=== PATIENT | female | born 1995 | race Hispanic/Latino ===

== ENCOUNTER 2017-05-12 12:03 | Inpatient (IN) | payer OTHER ==
[2017-05-12] MEDS ORDERED: Sodium Chloride 0.9% 1,000 ML IV STA (12:18)
[2017-05-12 13:12] LABS: BASO % 0.5 % (0.0-2.0); EOS % 0.3 % (0.0-4.0); HEMOGLOBIN 12.8 g/dL (12.0-16.0); LYMPH # 1.1 K/uL (1.0-4.3); LYMPH % 13.5 % (20.0-40.0); MEAN CELL VOLUME 85.2 fl (81.0-99.0); MEAN CORPUSCULAR HEMOGLOBIN 29.3 pg (27.0-31.0); MEAN CORPUSCULAR HGB CONC 34.4 g/dL (33.0-37.0); MEAN PLATELET VOLUME 7.7 fl (7.2-11.7); MONO # 0.5 K/uL (0.0-0.8); MONO % 6.5 % (0.0-10.0); NEUT # 6.7 K/uL (1.8-7.0); NEUT % 79.2 % (50.0-75.0); NRBC % 0.7 % (0.0-0.0); RBC 4.37 Mil/uL (3.80-5.20); RED CELL DISTRIBUTION WIDTH 13.1 % (11.5-14.5); WHITE BLOOD COUNT 8.4 K/uL (4.8-10.8)
[2017-05-12 13:18] LABS: SQUAMOUS EPITHIAL 4 /hpf (0-5); URINE BACTERIA RARE (<OCC); URINE BILIRUBIN NEGATIVE (NEGATIVE); URINE BLOOD LARGE (NEGATIVE); URINE CLARITY SLIGHTY-CLOUDY (Clear); URINE COLOR YELLOW (YELLOW); URINE GLUCOSE (UA) NEG (Normal); URINE LEUKOCYTE ESTERASE SMALL Leu/uL (Negative); URINE NITRATE NEGATIVE (NEGATIVE); URINE PROTEIN NEGATIVE (NEGATIVE); URINE UROBILINOGEN 0.2-1.0 mg/dL (0.2-1.0)
[2017-05-12 13:24] LABS: ALB/GLOB RATIO 1.1 (1.0-2.1); ALBUMIN 4.3 g/dL (3.5-5.0); ALT/SGPT 23 U/L (9-52); AST/SGOT 20 U/L (14-36); BLOOD UREA NITROGEN 10 mg/dl (7-17); CALCIUM 9.6 mg/dL (8.4-10.2); GFR AFRICAN-AMERICAN > 60; GFR NON-AFRICAN AMERICAN > 60
[2017-05-12 13:25] LABS: INR 1.2 (0.9-1.2); PROTHROMBIN TIME 13.1 Seconds (9.8-13.1)
[2017-05-12 13:30] LABS: BARBITURATES, UR NEGATIVE (NEGATIVE); BENZODIAZEPINES, UR NEGATIVE (NEGATIVE); OPIATES, UR NEGATIVE (NEGATIVE); PHENCYCLIDINE, UR NEGATIVE (NEGATIVE)
[2017-05-12 13:31] LABS: SALICYLATE < 1.0 mg/dl
--- NOTE | 2017-05-12 13:41 | ED PDOC ---
HPI: Psych/Substance Abuse Time Seen by Provider: 05/12/17 12:17 Chief Complaint (Nursing): Psychiatric Evaluation Chief Complaint (Provider): SI; depression - Took tylenol at 10pm History Per: Patient, Other (Solar Sales Advisor ) History/Exam Limitations: no limitations Onset/Duration Of Symptoms: Mins Additional Complaint(s): 21 yo female presents with assistant strength coach from [facility] for evaluation of SI and overdose on tylenol. Pt reports taking 8 tabs of 500mg Tylenol EMBEDDED PROCESSOR with vodka. Pt states she has felt depressed on/off for the last few years and has been seeing a psychologist for counleing but has not seen a psychiatrist for further evaluation and medications. Pt denies N/V. Pt denies abdominal pain. Past Medical History Reviewed: Historical Data, Nursing Documentation, Vital Signs Vital Signs: Last Vital Signs Temp 99 F 05/12/17 12:08 Pulse 90 05/12/17 12:08 Resp 16 05/12/17 12:08 BP 120/76 05/12/17 12:08 Pulse Ox 98 05/12/17 12:08 - Medical History PMH: No Chronic Diseases Other PMH: Depression - Not offically diagnosed by psychiatrist - Surgical History Surgical History: No Surg Hx - Family History Family History: States: No Known Family Hx - Living Arrangements Living Arrangements: Other - Social History Current smoker - smoking cessation education provided: No Alcohol: Occasional Drugs: Denies - Allergies Allergies/Adverse Reactions: Allergies Allergy/AdvReac Type Severity Reaction Status Date / Time No Known Allergies Allergy Verified 05/12/17 12:17 Review of Systems ROS Statement: Except As Marked, All Systems Reviewed And Found Negative Constitutional: Negative for: Fever, Chills Gastrointestinal: Negative for: Vomiting, Abdominal Pain Neurological: Negative for: Weakness, Numbness Psych: Positive for: Depression, Suicidal ideation Physical Exam - Reviewed Nursing Documentation Reviewed: Yes Vital Signs Reviewed: Yes - Physical Exam Appears: Positive for: Well, Non-toxic, No Acute Distress Head Exam: Positive for: ATRAUMATIC, NORMAL INSPECTION, NORMOCEPHALIC Skin: Positive for: Normal Color, Warm, DRY Eye Exam: Positive for: Normal appearance ENT: Positive for: Normal ENT Inspection Neck: Positive for: Normal, Painless ROM Cardiovascular/Chest: Positive for: Regular Rate, Rhythm Respiratory: Positive for: CNT, Normal Breath Sounds Gastrointestinal/Abdominal: Positive for: Normal Exam, Bowel Sounds, Soft. Negative for: Tenderness Back: Positive for: Normal Inspection Extremity: Positive for: Normal ROM Neurologic/Psych: Positive for: Alert, ironworker apprentice II-XII, Oriented, Gait - Laboratory Results Result Diagrams: 05/12/17 13:00 05/12/17 13:00 - ECG O2 Sat by Pulse Oximetry: 98 Disposition - Clinical Impression Clinical Impression: Tylenol overdose, Suicidal ideations - Disposition Disposition Time: 13:50 Condition: STABLE
[2017-05-12] MEDS ORDERED: DEXTROSE 5% IVPB ONE ×3 (14:16→20:00)
[2017-05-12] MEDS ORDERED: WATER IVPB ONE ×3 (14:16→20:00)
[2017-05-12] MEDS ORDERED: ACETYLCYSTEINE IVPB ONE ×3 (14:16→20:00)
--- NOTE | 2017-05-12 15:18 | CP.PCM.HP ---
History of Present Illness - History of Present Illness History of Present Illness: This is 21 y/o female with PMH of depression presented to ED for evaluation and treatment of depression, suicide attempt and Acetamenophen overdose. Patient admits feeling depressed, sad and stressed since last few years which got severe /worse recently which prompted her to Overdose acetaminophen. She ingested 8 pills of acetaminophen 500mg (Total 8gm) this morning, realized her mistake soon after and notified school counselor. Patient is a calderon in college taking graduate classes; majoring in engineering, patient describes her school life vary stressful. Patient admits seeing psychologist for counseling at school. She lives w/ a sister and a roommate, she admits tension and occasional arguments with her roommate over house chores. She has a previous suicidal attempt 3 yrs ago; took 4-5 pain pills. She admits cutting her left wrist and arm with knife to relieve her stress. Patient denies any auditory/visual hallucinations, or homicidal ideation. Patient recently quite swimming team because she lost interest, admits decreased energy. Denies change in appetite, heat/cold intolerance, constipation. Denies being sexually or physically abused but admits to being bullied in high school. Denies n/v/d or any abdominal pain. Patient admits good relationship with a sister and parents. PMD: Concetta Rebolledo PMHx: Depression Surgical Hx: cleft lip repair. Congenital kidney problem repair Allg: NKDA Meds: Control Fhx: HTN, DM father side. Depression; grandfather. Living arrangements: a Sister and a roommate Social history:Does not smoke, Drinks occasionally. Smokes Marijuana; 2-3 joints /d Sexual hx: Sexually active, uses protection all the time, 1 partner in last 6 months Present on Admission - Present on Admission Any Indicators Present on Admission: No History of DVT/PE: No History of Uncontrolled Diabetes: No Urinary Catheter: No Decubitus Ulcer Present: No Review of Systems - Review of Systems Review of Systems: As per HPI - Constitutional Constitutional: Weight Loss - EENT Eyes: absent: Blurred Vision, Change in Vision Ears: absent: Dizziness Nose/Mouth/Throat: absent: Nasal Congestion, Dry Mouth, Dysphagia - Cardiovascular Cardiovascular: absent: Chest Pain, Leg Edema, Palpitations, Syncope - Respiratory Respiratory: absent: Cough, Hemoptysis, Dyspnea on Exertion - Gastrointestinal Gastrointestinal: absent: Abdominal Pain, Bloating, Constipation, Diarrhea, Dyspepsia, Dysphagia - Genitourinary Genitourinary: absent: Change in Urinary Stream, Flank Pain - Musculoskeletal Musculoskeletal: absent: Neck Pain, Numbness, Stiffness - Neurological Neurological: absent: Dizziness, Numbness, Focal Weakness, Headaches, Loss of Vision - Psychiatric Psychiatric: Depression, Suicidal Ideation. absent: Auditory Hallucinations, Change in Appetite, Confusion, Hallucinations, Homicidal Ideation, Memory Loss, Visual Hallucinations, Tactile Hallucinations Past Patient History - Past Social History Smoking Status: Never Smoked Alcohol: Occasional Drugs: Cannabis - CARDIAC Hx Cardiac Disorders: No - PULMONARY Hx Respiratory Disorders: No - NEUROLOGICAL Hx Neurological Disorder: No - HEENT Hx HEENT Problems: Yes Other/Comment: cleft palate - RENAL Hx Chronic Kidney Disease: Yes - ENDOCRINE/METABOLIC Hx Endocrine Disorders: No - HEMATOLOGICAL/ONCOLOGICAL Hx Blood Disorders: No - PSYCHIATRIC Hx Substance Use: No Meds Allergies/Adverse Reactions: Allergies Allergy/AdvReac Type Severity Reaction Status Date / Time No Known Allergies Allergy Verified 05/12/17 12:17 Physical Exam - Constitutional Appears: No Acute Distress Additional comments: Flat affect, cooperative, AAOx3 Left wrist and arm self inflicted superficial knife cuts noted, in varies stages of heeling No active bleeding or infected wound - Head Exam Head Exam: ATRAUMATIC, NORMAL INSPECTION, NORMOCEPHALIC - Eye Exam Eye Exam: EOMI, Normal appearance, PERRL Pupil Exam: NORMAL ACCOMODATION - ENT Exam ENT Exam: Mucous Membranes Moist - Neck Exam Neck exam: Positive for: Normal Inspection - Respiratory Exam Respiratory Exam: Clear to Auscultation Bilateral, NORMAL BREATHING PATTERN - Cardiovascular Exam Cardiovascular Exam: REGULAR RHYTHM - GI/Abdominal Exam GI & Abdominal Exam: Normal Bowel Sounds, Soft. absent: Organomegaly, Tenderness - Extremities Exam Additional comments: Left wrist and arm self inflicted superficial knife cuts noted, in varies stages of heeling No active bleeding or infected wound - Back Exam Back exam: NORMAL INSPECTION - Neurological Exam Neurological exam: Alert, CN II-XII Intact, Oriented x3 - Psychiatric Exam Psychiatric exam: Flat Affect, Suicidal Ideation - Skin Skin Exam: Dry, Normal Color Results - Vital Signs Recent Vital Signs: Last Vital Signs Temp 98.2 F 05/12/17 15:15 Pulse 72 05/12/17 14:52 Resp 16 05/12/17 14:52 BP 106/60 05/12/17 14:52 Pulse Ox 99 05/12/17 14:52 - Labs Result Diagrams: 05/12/17 13:00 05/12/17 13:00 Labs: Laboratory Results - last 24 hr 05/12/17 05/12/17 05/12/17 13:00 13:00 13:00 WBC 8.4 RBC 4.37 Hgb 12.8 Hct 37.3 MCV 85.2 MCH 29.3 MCHC 34.4 RDW 13.1 Plt Count 293 MPV 7.7 Neut % (Auto) 79.2 H Lymph % (Auto) 13.5 L [place] % (Auto) 6.5 Eos % (Auto) 0.3 Baso % (Auto) 0.5 Neut # (Auto) 6.7 Lymph # (Auto) 1.1 [place] # (Auto) 0.5 Eos # (Auto) 0.0 Baso # (Auto) 0.0 PT INR APTT Sodium 143 Potassium 3.8 Chloride 104 Carbon Dioxide 25 Anion Gap 18 BUN 10 Creatinine 0.6 L Est GFR ( Amer) > 60 Est GFR (Non-Af Amer) > 60 Random Glucose 90 Calcium 9.6 Total Bilirubin 0.7 AST 20 ALT 23 Alkaline Phosphatase 50 Total Protein 8.0 Albumin 4.3 Globulin 3.7 Albumin/Globulin Ratio 1.1 Urine Color Urine Clarity Urine pH Ur Specific [place] Urine Protein Urine Glucose (UA) Urine Ketones Urine Blood Urine Nitrate Urine Bilirubin Urine Urobilinogen Ur Leukocyte Esterase Urine RBC (Auto) Urine Microscopic WBC Ur Squamous Epith Cells Urine Bacteria Salicylates < 1.0 Urine Opiates Screen Urine Methadone Screen Acetaminophen 66.0 H Ur Barbiturates Screen Ur Phencyclidine Scrn Ur Amphetamines Screen U Benzodiazepines Scrn U Oth Cocaine Metabols U Cannabinoids Screen Alcohol, Quantitative < 10 05/12/17 05/12/17 05/12/17 13:00 13:00 13:00 WBC RBC Hgb Hct MCV MCH MCHC RDW Plt Count MPV Neut % (Auto) Lymph % (Auto) [place] % (Auto) Eos % (Auto) Baso % (Auto) Neut # (Auto) Lymph # (Auto) [place] # (Auto) Eos # (Auto) Baso # (Auto) PT 13.1 INR 1.2 APTT 29.0 Sodium Potassium Chloride Carbon Dioxide Anion Gap BUN Creatinine Est GFR ( Amer) Est GFR (Non-Af Amer) Random Glucose Calcium Total Bilirubin AST ALT Alkaline Phosphatase Total Protein Albumin Globulin Albumin/Globulin Ratio Urine Color Yellow Urine Clarity Slighty-cloudy Urine pH 6.0 Ur Specific [place] 1.010 Urine Protein Negative Urine Glucose (UA) Neg Urine Ketones Negative Urine Blood Large Urine Nitrate Negative Urine Bilirubin Negative Urine Urobilinogen 0.2-1.0 Ur Leukocyte Esterase Small Urine RBC (Auto) 118 H Urine Microscopic WBC 7 H Ur Squamous Epith Cells 4 Urine Bacteria Rare Salicylates Urine Opiates Screen Negative Urine Methadone Screen Negative Acetaminophen Ur Barbiturates Screen Negative Ur Phencyclidine Scrn Negative Ur Amphetamines Screen Negative U Benzodiazepines Scrn Negative U Oth Cocaine Metabols Negative U Cannabinoids Screen Positive H Alcohol, Quantitative Assessment & Plan - Assessment and Plan (Free Text) Assessment: 21 y/o female with PMH of Depression admitted for evaluation and treatment of recent Suicidal attempt and Acetaminophen overdose. Acetaminophen Overdose - Asymptomatic - Patient admits 8gm Tylenol intake - Acetaminophen level 66 on admission - CBC, CMP, Coag unremarkable - Patient is 1:1 observation - S/p 1L NS x1 - Continue N-Acetylcysteine - Pt received 241.5 mls @200mls/hr acetylcysteine 8300mg in dextrose - Pt received 513.85 mls @125mls/hr Acetylcysteine 2770 mg in Dextrose. - Start 21 hr N-Acetylcysteine IV protocol: 8250 mg loading dose over 60 minutes , followed by 2750 mg infused over 4 hrs, followed by 5500 mg infused over the next 16 hrs. Depression - 1:1 observation - Psych consulted, Dr. Arshad, follow up recommendations Suicidal Attempt - 8 gm Tylenol OVD - History of previous attempt - 1:1 Observation Substance Abuse - Smokes Marijuana; 2-3 joints/day - Urine drug screen positive for Marijuana
[2017-05-13 06:41] LABS: ALB/GLOB RATIO 1.1 (1.0-2.1); ALBUMIN 3.5 g/dL (3.5-5.0); ALT/SGPT 20 U/L (9-52); AST/SGOT 15 U/L (14-36); BLOOD UREA NITROGEN 6 mg/dl (7-17); GFR AFRICAN-AMERICAN > 60; GFR NON-AFRICAN AMERICAN > 60
[2017-05-13] MEDS ORDERED: Alum-Mag Hydrox-Simethicone Susp (30 mL) PO STA (11:33)
[2017-05-13] MEDS ORDERED: Alum-Mag Hydrox-Simethicone Susp (30 mL) PO PRN (11:34)
[2017-05-13 14:41] LABS: ALB/GLOB RATIO 1.1 (1.0-2.1); ALT/SGPT 17 U/L (9-52); AST/SGOT 20 U/L (14-36); BLOOD UREA NITROGEN 5 mg/dl (7-17); CALCIUM 9.5 mg/dL (8.4-10.2); GFR AFRICAN-AMERICAN > 60; GFR NON-AFRICAN AMERICAN > 60
--- NOTE | 2017-05-13 15:03 | CP.PCM.CON ---
History of Present Illness - History of Present Illness History of Present Illness: pt is a 21 y/o female with previous psychiatric history of of depression currently not on any medications but receiving counseling in school once weekly Pt presented to ED for after suicide attempt by Acetamenophen overdose. Patient reported feeling increasingly depressed for last few years which got severe/worse recently which prompted her to Overdose acetaminophen. She ingested 8 pills of acetaminophen 500mg (Total 8gm) after which she notified school counselor. Patient is a calderon in college taking graduate classes; majoring in engineering, patient describes her school life vary stressful. she also feels uncertain about her future after graduation pt has been cutting herself superficially on the wrist and leg , she has had very low energy and unable to participate in swimming a s she used to reported feeling hopless and helpless and continues to have suicidal ideatations denied manic or psychotic symptoms, reported using cannabis daily Past Patient History - Past Medical History & Family History Past Medical History?: Yes - Past Social History Smoking Status: Never Smoked Alcohol: Occasional Drugs: Cannabis - CARDIAC Hx Cardiac Disorders: No - PULMONARY Hx Respiratory Disorders: No - NEUROLOGICAL Hx Neurological Disorder: No - HEENT Hx HEENT Problems: Yes Other/Comment: cleft palate - RENAL Hx Chronic Kidney Disease: Yes - ENDOCRINE/METABOLIC Hx Endocrine Disorders: No - HEMATOLOGICAL/ONCOLOGICAL Hx Blood Disorders: No - MUSCULOSKELETAL/RHEUMATOLOGICAL Hx Falls: No - PSYCHIATRIC Hx Substance Use: No - ANESTHESIA Hx Anesthesia: No Meds Allergies/Adverse Reactions: Allergies Allergy/AdvReac Type Severity Reaction Status Date / Time No Known Allergies Allergy Verified 05/12/17 12:17 - Medications Medications: Current Medications Al Hydrox/Mg Hydrox/Simethicone (Maalox Plus 30 Ml) 30 ml PO Q4 PRN PRN Reason: Indigestion / Heartburn Diphenhydramine HCl (Benadryl) 25 mg PO Q8H PRN PRN Reason: Rash Physical Exam - Psychiatric Exam Additional comments: pt seen in bed , cooperative good eye contact, depressed mood affect depressed and tearful speech soft goal directed thought form coherent continues to report fair insight and poor impulse controlsuicidal ideations denied homicidal ideations denied psychotic symptoms non elicited Results - Vital Signs Recent Vital Signs: Last Vital Signs Temp 98.3 F 05/13/17 11:42 Pulse 59 L 05/13/17 11:42 Resp 18 05/13/17 11:42 BP 130/80 05/13/17 11:42 Pulse Ox 100 05/13/17 11:42 - Labs Result Diagrams: 05/12/17 13:00 05/13/17 14:17 Labs: Laboratory Results - last 24 hr 05/13/17 05/13/17 05/13/17 06:05 14:17 14:17 Sodium 142 144 Potassium 3.8 4.1 Chloride 108 H 106 Carbon Dioxide 24 23 Anion Gap 14 19 BUN 6 L 5 L Creatinine 0.5 L 0.7 Est GFR ( Amer) > 60 > 60 Est GFR (Non-Af Amer) > 60 > 60 Random Glucose 91 104 Calcium 9.0 9.5 Total Bilirubin 0.4 0.5 AST 15 20 ALT 20 17 Alkaline Phosphatase 37 L D 41 Total Protein 6.8 7.7 Albumin 3.5 4.0 Globulin 3.3 3.7 Albumin/Globulin Ratio 1.1 1.1 Acetaminophen < 10.0 L Assessment & Plan - Assessment and Plan (Free Text) Assessment: major depression recurrent severe without psychotic features Plan: pt at current mental status would benefit from inpatient psychiatric hospitalization for further stabilization pt agreed to be admitted to psychiatric unit upon medical clearence
--- NOTE | 2017-05-13 16:30 | CP.PCM.PN ---
Subjective - Date & Time of Evaluation Date of Evaluation: 05/13/17 Time of Evaluation: 07:36 - Subjective Subjective: Patient seen and examined this morning. NAD, patient denies any acute event overnight. Denies abdominal pain, n/v/d. Objective - Vital Signs/Intake and Output Vital Signs (last 24 hours): Temp Pulse Resp BP Pulse Ox 98.5 F 61 20 150/80 100 05/13/17 16:03 05/13/17 16:03 05/13/17 16:03 05/13/17 16:03 05/13/17 16:03 - Medications Medications: Current Medications Al Hydrox/Mg Hydrox/Simethicone (Maalox Plus 30 Ml) 30 ml PO Q4 PRN PRN Reason: Indigestion / Heartburn Diphenhydramine HCl (Benadryl) 25 mg PO Q8H PRN PRN Reason: Rash - Labs Labs: 05/12/17 13:00 05/13/17 14:17 PT 13.1 Seconds (9.8-13.1) 05/12/17 13:00 INR 1.2 (0.9-1.2) 05/12/17 13:00 APTT 29.0 Seconds (25.6-37.1) 05/12/17 13:00 - Constitutional Appears: No Acute Distress - Head Exam Head Exam: ATRAUMATIC, NORMAL INSPECTION, NORMOCEPHALIC - Eye Exam Eye Exam: Normal appearance, PERRL Pupil Exam: NORMAL ACCOMODATION - ENT Exam ENT Exam: Mucous Membranes Moist - Neck Exam Neck Exam: Normal Inspection - Respiratory Exam Respiratory Exam: Clear to Ausculation Bilateral, NORMAL BREATHING PATTERN - Cardiovascular Exam Cardiovascular Exam: REGULAR RHYTHM - GI/Abdominal Exam GI & Abdominal Exam: Soft, Normal Bowel Sounds - Extremities Exam Extremities Exam: Full ROM, Normal Capillary Refill Additional comments: Left wrist and arm self inflicted superficial knife cuts noted, in varies stages of heeling No active bleeding or infected wound - Neurological Exam Neurological Exam: Alert, Awake, CN II-XII Intact, Oriented x3 - Psychiatric Exam Psychiatric exam: Flat Affect - Skin Skin Exam: Dry, Normal Color Assessment and Plan - Assessment and Plan (Free Text) Assessment: A/P: 21 y/o female with PMH of Depression admitted for evaluation and treatment of recent Suicidal attempt and Acetaminophen overdose. Acetaminophen Overdose - Asymptomatic - Patient admits 8gm Tylenol intake - Acetaminophen level 66 on admission, today <10.0 - CBC, CMP, Coag unremarkable - Patient is 1:1 observation - S/p 1L NS x1 - S/p N-Acetylcysteine IV protocol Depression - 1:1 observation - Psych consulted, Dr. Parisi, follow up recommendations - Transfer to Psych after medically stable Suicidal Attempt - 8 gm Tylenol OVD - History of previous attempt - 1:1 Observation Substance Abuse - Smokes Marijuana; 2-3 joints/day - Urine drug screen positive for Marijuana
[2017-05-14 05:03] VITALS: O2SAT 99
--- NOTE | 2017-05-14 09:24 | CP.PCM.DIS ---
Provider - Provider Date of Admission: 05/12/17 14:16 Attending physician: Bere Cam MD Primary care physician: Concetta Rebolledo Consults: Psych Time Spent in preparation of Discharge (in minutes): 40 Diagnosis - Discharge Diagnosis (1) Suicidal ideations Status: Acute (2) Tylenol overdose Status: Acute (3) Depression Status: Chronic Hospital Course - Lab Results Lab Results: Most Recent Lab Values WBC 8.4 K/uL (4.8-10.8) 05/12/17 13:00 RBC 4.37 Mil/uL (3.80-5.20) 05/12/17 13:00 Hgb 12.8 g/dL (12.0-16.0) 05/12/17 13:00 Hct 37.3 % (34.0-47.0) 05/12/17 13:00 MCV 85.2 fl (81.0-99.0) 05/12/17 13:00 MCH 29.3 pg (27.0-31.0) 05/12/17 13:00 MCHC 34.4 g/dL (33.0-37.0) 05/12/17 13:00 RDW 13.1 % (11.5-14.5) 05/12/17 13:00 Plt Count 293 K/uL (130-400) 05/12/17 13:00 MPV 7.7 fl (7.2-11.7) 05/12/17 13:00 Neut % (Auto) 79.2 % (50.0-75.0) H 05/12/17 13:00 Lymph % (Auto) 13.5 % (20.0-40.0) L 05/12/17 13:00 [place] % (Auto) 6.5 % (0.0-10.0) 05/12/17 13:00 Eos % (Auto) 0.3 % (0.0-4.0) 05/12/17 13:00 Baso % (Auto) 0.5 % (0.0-2.0) 05/12/17 13:00 Neut # (Auto) 6.7 K/uL (1.8-7.0) 05/12/17 13:00 Lymph # (Auto) 1.1 K/uL (1.0-4.3) 05/12/17 13:00 [place] # (Auto) 0.5 K/uL (0.0-0.8) 05/12/17 13:00 Eos # (Auto) 0.0 K/uL (0.0-0.7) 05/12/17 13:00 Baso # (Auto) 0.0 K/uL (0.0-0.2) 05/12/17 13:00 PT 13.1 Seconds (9.8-13.1) 05/12/17 13:00 INR 1.2 (0.9-1.2) 05/12/17 13:00 APTT 29.0 Seconds (25.6-37.1) 05/12/17 13:00 Sodium 144 mmol/l (132-148) 05/13/17 14:17 Potassium 4.1 MMOL/L (3.6-5.0) 05/13/17 14:17 Chloride 106 mmol/L (98-107) 05/13/17 14:17 Carbon Dioxide 23 mmol/L (22-30) 05/13/17 14:17 Anion Gap 19 (10-20) 05/13/17 14:17 BUN 5 mg/dl (7-17) L 05/13/17 14:17 Creatinine 0.7 mg/dl (0.7-1.2) 05/13/17 14:17 Est GFR ( Amer) > 60 05/13/17 14:17 Est GFR (Non-Af Amer) > 60 05/13/17 14:17 Random Glucose 104 mg/dL (65-105) 05/13/17 14:17 Calcium 9.5 mg/dL (8.4-10.2) 05/13/17 14:17 Total Bilirubin 0.5 mg/dl (0.2-1.3) 05/13/17 14:17 AST 20 U/L (14-36) 05/13/17 14:17 ALT 17 U/L (9-52) 05/13/17 14:17 Alkaline Phosphatase 41 U/L (38-126) 05/13/17 14:17 Total Protein 7.7 G/DL (6.3-8.2) 05/13/17 14:17 Albumin 4.0 g/dL (3.5-5.0) 05/13/17 14:17 Globulin 3.7 gm/dL (2.2-3.9) 05/13/17 14:17 Albumin/Globulin Ratio 1.1 (1.0-2.1) 05/13/17 14:17 Urine Color Yellow (YELLOW) 05/12/17 13:00 Urine Clarity Slighty-cloudy (Clear) 05/12/17 13:00 Urine pH 6.0 (5.0-8.0) 05/12/17 13:00 Ur Specific [place] 1.010 (1.003-1.030) 05/12/17 13:00 Urine Protein Negative mg/dL (NEGATIVE) 05/12/17 13:00 Urine Glucose (UA) Neg mg/dL (Normal) 05/12/17 13:00 Urine Ketones Negative mg/dL (NEGATIVE) 05/12/17 13:00 Urine Blood Large (NEGATIVE) 05/12/17 13:00 Urine Nitrate Negative (NEGATIVE) 05/12/17 13:00 Urine Bilirubin Negative (NEGATIVE) 05/12/17 13:00 Urine Urobilinogen 0.2-1.0 mg/dL (0.2-1.0) 05/12/17 13:00 Ur Leukocyte Esterase Small [place]/uL (Negative) 05/12/17 13:00 Urine RBC (Auto) 118 /hpf (0-3) H 05/12/17 13:00 Urine Microscopic WBC 7 /hpf (0-5) H 05/12/17 13:00 Ur Squamous Epith Cells 4 /hpf (0-5) 05/12/17 13:00 Urine Bacteria Rare (<OCC) 05/12/17 13:00 Salicylates < 1.0 mg/dl 05/12/17 13:00 Urine Opiates Screen Negative (NEGATIVE) 05/12/17 13:00 Urine Methadone Screen Negative (NEGATIVE) 05/12/17 13:00 Acetaminophen < 10.0 ug/ml (10.0-30.0) L 05/13/17 14:17 Ur Barbiturates Screen Negative (NEGATIVE) 05/12/17 13:00 Ur Phencyclidine Scrn Negative (NEGATIVE) 05/12/17 13:00 Ur Amphetamines Screen Negative (NEGATIVE) 05/12/17 13:00 U Benzodiazepines Scrn Negative (NEGATIVE) 05/12/17 13:00 U Oth Cocaine Metabols Negative (NEGATIVE) 05/12/17 13:00 U Cannabinoids Screen Positive (NEGATIVE) H 05/12/17 13:00 Alcohol, Quantitative < 10 mg/dl (0-10) 05/12/17 13:00 - Hospital Course Hospital Course: This is 21 y/o female with PMH of depression who was admitted to [facility] for evaluation and treatment of acute acetaminophen OVD and chronic depression. On admission Acetaminophen level 66, Marijuana +, CBC and CMP x3 unremarkable. Poison control were informed and merna' N-acetylcysteine IV protocol for acetaminophen toxicity. Patient is s/p 21 hour IV N-acetylcysteine protocol. Patient was evaluated by psych and merna' psych inpatient admission. Patient was transferred to [facility] for further depression evaluation and treatment. Discharge Exam - Head Exam Head Exam: ATRAUMATIC, NORMAL INSPECTION, NORMOCEPHALIC - Eye Exam Eye Exam: EOMI, Normal appearance, PERRL - ENT Exam ENT Exam: Mucous Membranes Moist - Neck Exam Neck exam: Full Rom - Respiratory Exam Respiratory Exam: Clear to PA & Lateral, NORMAL BREATHING PATTERN - Cardiovascular Exam Cardiovascular Exam: REGULAR RHYTHM - GI/Abdominal Exam GI & Abdominal Exam: Normal Bowel Sounds, Soft. absent: Distended, Tenderness - Extremities Exam Additional comments: Left wrist and arm self inflicted superficial knife cuts noted, in varies stages of heeling No active bleeding or infected wound - Back Exam Back exam: NORMAL INSPECTION - Neurological Exam Neurological exam: Alert, CN II-XII Intact, Oriented x3 - Psychiatric Exam Psychiatric exam: Flat Affect - Skin Skin Exam: Dry, Normal Color Discharge Plan - Follow Up Plan Condition: STABLE Disposition: DISCHARGE TO PSYCH HOSPITAL Instructions: Depression
[2017-05-14 13:06] VITALS: BP 126/82; PULSE 532; RESP 0; TEMP 97.8
== END 2017-05-14 16:29 | DRG 918 ==
LOC: H.ER 12:03 → H.ERHOLD 14:16 → H.TEL 17:34
PROVIDERS: ADMIT Family Medicine Geriatric Medicine; ATTEND Family Medicine Geriatric Medicine
DX: T39.1X2A Poisoning by 4-Aminophenol derivatives, intentional self-harm, initial encounter (principal); F33.2 Major depressive disorder, recurrent severe without psychotic features; F12.90 Cannabis use, unspecified, uncomplicated; Z83.3 Family history of diabetes mellitus; S61.512A Laceration without foreign body of left wrist, initial encounter; Z87.730 Personal history of (corrected) cleft lip and palate; Z91.5 Personal history of self-harm; X78.1XXA Intentional self-harm by knife, initial encounter; Y93.9 Activity, unspecified; Y92.9 Unspecified place or not applicable

== ENCOUNTER 2017-05-12 13:39 | Emergency (ER) | payer OTHER | END 2017-05-12 14:16 | disposition home or self-care (01) | LOC: H.ER 13:39 | DX: T39.1X2A Poisoning by 4-Aminophenol derivatives, intentional self-harm, initial encounter (principal); F12.90 Cannabis use, unspecified, uncomplicated; Z83.3 Family history of diabetes mellitus; S61.512A Laceration without foreign body of left wrist, initial encounter; Z87.730 Personal history of (corrected) cleft lip and palate; Z91.5 Personal history of self-harm; X78.1XXA Intentional self-harm by knife, initial encounter; Y93.9 Activity, unspecified; Y92.9 Unspecified place or not applicable; F33.2 Major depressive disorder, recurrent severe without psychotic features; Z00.8 Encounter for other general examination | CPT/HCPCS: 80053; 80320; 80324; 80329; 80345; 80346; 80349; 80353; 80358; 80361; 81003; 81025; 83992; 85025; 85610; 85730; 96374; 96376; 99285; J0132; J7040; J7060 ==

== ENCOUNTER 2017-05-14 17:32 | Inpatient (IN) | payer OTHER ==
[2017-05-14 17:39] VITALS: BMI 20.2
[2017-05-14] MEDS ORDERED: Magnesium Hydroxide Susp 30 ml UD PO PRN (18:00)
[2017-05-14] MEDS ORDERED: DiphenhydrAMINE 50 mg/ml Inj IM PRN (18:00)
[2017-05-14] MEDS ORDERED: Alum-Mag Hydrox-Simethicone Susp (30 mL) PO PRN (18:00)
--- NOTE | 2017-05-14 18:25 | PCM.BM ---
<Steven Chang Robles - Last Filed: 05/14/17 18:18> Treatment Plan Problems - Problems identified on initial assessmt Hopelessness/Restlessness Date Initiated: 05/14/17 Time Initiated: 17:00 Assessment reference: NA Status: Active Treatment assets and liabiliti Patient Assests: adapts well, cooperative, educated, insightful, ADL independent , good support system, negotiates basic needs, good interpersonal skills Patient Liabilities: other (school stressor) - Milieu Protocol Maintain good personal hygiene: every shift Encourage regular showers, every shift Remind patient to perform daily oral care, every shift Assist patient to perform ADL's Maintain personal safety: every shift Educate patient to report safety concerns to staff, every shift Monitor environment for contraband/sharps Medication safety: Monitor for expected outcome, potential side effects: every shift, Assess barriers to learning: every shift, Assess readiness for medication education: every shift <Mahnaz Dobbs - Last Filed: 05/17/17 16:47> Treatment assets and liabiliti Patient Assests: adapts well, cooperative, educated, insightful, motivated, ADL independent, physically healthy, good support system, negotiates basic needs, cognitively intact, good interpersonal skills Patient Liabilities: other Family Contact Family involvement: Family/SO is involved Family contact: Patient agrees to contact, Family has been contacted by patient , Telephone contact initiated by staff Family contact name: Carol(mom)([phone]) Family contacted how many times per week?: 2 Family contact comment: Certified Wellness Program Coordinator placed call to patients mother (Carol [phone]) to discuss precursors to patients hospitalization, progress on 3NP and aftercare. Certified Wellness Program Coordinator provided clinical updates regarding improvement of patients symptoms. Patients decision to take the rest of the semester off to focus on tx discussed at length. Patients mother reports being supportive of whatever decision patient makes as long as it benefits her mental health/wellbeing. Certified Wellness Program Coordinator provided psychoeducation regarding different levels of aftercare and patients interest in an IOP. Patients mother supportive of aftercare and reported she will work on her end to explore IOP options through patients insurance. Certified Wellness Program Coordinator to contact patients insurance company to inquire about IOP possibilities. Patients mother reports patient has been struggling with depression for a long time but has always been an exemplary student, adding a significant amount of pressure. Patients mother notified that [facility] has been contacted and that both Dr. Kelly and the link wire fabric machine tender will work with patient to take the appropriate leave in order to return when she wishes to do so. Certified Wellness Program Coordinator to continue providing updates through-out patients stabilization. - Outside Agency Agency 1 Care involvment: Following patient during stay, Information-sharing, Other Agency contact name: Troy Leal (Dr. Kelly) Agency contact number: ([phone]) - Goals for Treatment Patient goals for treatment: Patient to continue stabilization on 3NP through medication management and group/supportive therapy. Patient to be encouraged to attend groups regularly to promote self-awareness, compliance, and improve insight, coping skills and self-esteem. Patient to be provided with referral for appropriate level of aftercare to reduce risk of future hospitalizations and ensure safety in the community. Discharge/Continuing Care - Education Needs Education Needs: Family Medication, Family Coping Skills, Family Community resources, Family Aftercare Safety Plan, Patient Medication, Patient Coping Skills, Patient Community resources, Patient Aftercare Safety Plan - Discharge Discharge Criteria: Tolerates medication w/o severe side effects, Free of Suicidal thoughts, Free of paranoid thoughts, Normal sleep pattern, Ability to care for self, Reduction of target symptoms Discharge to:: Home, With Family (pt. staying in [place], residing off campus with sister and a roommate) - Treatment Team Participation Patient/Family/SO Statement: 05/17/17 16:49 Patient attended tx team this morning to discuss progress on 3NP and aftercare. Patient reported improvement in symptoms of depression and anxiety. Patient reported decrease in urgers to self-injure. Patient denied SI/HI and was able to contract for safety on 3NP. Patient expressed c/o sleep disturbances but reports they are due to being on a unit with other patients and not to symptoms. Patient reported having had a productive visitation with mother and roommate and is pleased with the support being received by friends and family since admission. Patient has decided that she will not return to [place] for the remainder of the semester to focus on recovery/tx. Patient is agreeable to IOP upon discharge. Patient able to fully engage in discussion regarding tx goals. Patent cooperative, pleasant and goal oriented. Patient expressed being motivated for tx upon d/c. No harmful behaviors noted. Discussed with Family/SO: Yes Was Patient/Family/SO present at Treatment Team Meeting: Yes <Anita Parisi - Last Filed: 05/19/17 09:56> - Diagnosis (1) Depression Status: Acute Interventions: psychotherapy, pharmacotherapy 05/19/17 09:55
--- NOTE | 2017-05-15 10:45 | PCM.PSYCH ---
Initial Psychiatric Evaluation - Initial Psychiatric Evaluation Type of Admission: Voluntary Legal Status: Capacity Chief Complaint (in patient's own words): "I am depressed." Patient's Reaction to Hospitalization: 21 yo female w/ no past psychiatric treatment, h/o of self injurious behaviors ( cutting), presents s/p suicide attempt by overdose on Tylenol in the context of depressed mood and school stress. Patient expresses remorse about her recent suicide attempt and is able to contract for safety at this time. She denies acute SI/HI. She continues to report feeling depressed and anxious and has intermittent feelings of hopelessness. We discussed starting Lexapro; r/b/se reviewed. PPHx: No past psychiatric treatment/medications or hospitalizations. PMHx: Denies chronic medical issues ALL: NKDA SHx: +Student, +Marijuana use, denies other drugs; drinks alcohol once weekly/ denies binge drinking; no cig Current Medications: Active Medications Generic Name Dose Route Start Last Admin Trade Name Freq PRN Reason Stop Dose Admin Acetaminophen 650 mg 05/14/17 18:00 Tylenol 325mg Tab PO Q4 PRN Pain, moderate (4-7) Al Hydrox/Mg Hydrox/Simethicone 30 ml 05/14/17 18:00 Maalox Plus 30 Ml PO Q4 PRN Dyspepsia Diphenhydramine HCl 50 mg 05/14/17 18:00 Benadryl IM Q6 PRN Extrapyramidal S/S Unable PO Diphenhydramine HCl 50 mg 05/14/17 18:00 Benadryl PO Q6 PRN Extrapyramidal Symptoms Escitalopram Oxalate 5 mg 05/15/17 10:30 Lexapro PO DAILY CARTER Haloperidol 5 mg 05/14/17 18:00 Haldol PO Q4 PRN Agitation Haloperidol Lactate 5 mg 05/14/17 18:00 Haldol IM Q4 PRN Agitation, Unable to Take PO Lorazepam 2 mg 05/14/17 18:00 Ativan IM Q4 PRN Anxiety/Agitation,Unable PO Lorazepam 2 mg 05/14/17 18:00 Ativan PO Q4 PRN Anxiety/Agitation Magnesium Hydroxide 30 ml 05/14/17 18:00 Milk Of Magnesia PO HS PRN Constipation Past Psychiatric History - Past Psychiatric History Previous Treatment History: None Pertinent Medical Hx (Current Medical&Sleep Prob, Allergies): Allergies Allergy/AdvReac Type Severity Reaction Status Date / Time No Known Allergies Allergy Verified 05/12/17 12:17 Norgestimate-Ethinyl Estradiol [Trinessa Tablet] 1 each PO 05/14/17 Review of Systems - Psychiatric Psychiatric: Anhedonia, Anxiety, Change in Appetite, Depression, Difficulty Concentrating, Hopelessness, Irritability, Suicidal Ideation Mental Status Examination - Personal Presentation Personal Presentation: Looks stated age - Affect Affect: Constricted, Depressed - Motor Activity Motor Activity: Calm - Reliability in Providing Information Reliability in Providing Information: Good - Speech Speech: Organized - Mood Mood: Depressed - Formal Thought Process Formal Thought Process: No Impairment - Hallucinations/Delusions Additional comments: NO AH/VH/paranoia/delusions - Obsessions/Compulsions Obsessions: No Compulsions: No - Cognitive Functions Orientation: Person, Place, Situation, Time Sensorium: Alert Attention/Concentration: Attentive Estimate of Intelligence: Average Judgement: Intact, as evidence by: Insight regarding need for hospitalization Memory: Recent intact, as evidence by: Ability to recall events of the day, Recent intact, as evidence by: 3/3 object recall, Remote intact, as evidenced by : Abilit to recall sig. life events, Remote intact, as evidenced by: Ability to recall historical events - Risk Risk: Suicidal - Strength & Assets Inventory Strength & Assets Inventory: Intelligence, Cooperative DSM 5 DX - DSM 5 DSM 5 Diagnosis: Major Depressive Disorder; r/o Borderline Personality Disorder - Recommended/Plan of Treatment Treatment Recommendations and Plan of Treatment: Major Depressive Disorder; r/o Borderline Personality Disorder -Admit to psychiatry unit -Medicine consult -Individual and group therapy -Psychoeducation -Start Lexapro 5 mg PO Daily, will titrate up to 10 mg PO Daily -Disposition planning Projected ELOS: 5-7 days Discharge Plan and Discharge Criteria: Discharge when patient is psychiatrically stable - Smoking Cessation Smoking Cessation Initiated: No Reason for not providing: Not indicated
[2017-05-15 11:54] LABS: T4 13.6 ug/dl (5.5-11.0)
--- NOTE | 2017-05-15 17:38 | CP.PCM.CON ---
History of Present Illness - History of Present Illness History of Present Illness: The patient is a 21 y/o woman w/ pmh of depression who was admitted to [facility] for evaluation and treatment of acute acetaminophen OVD and chronic depression. Patient is s/p N-acetylcysteine IV protocol. Patient was evaluated by psych and recommend psych inpatient admission. Patient's CBC and CMP were WNL upon discharge to psych. Patient was transferred to psych for further depression evaluation and treatment. The patient has no complaints and reports cooperation with current psychiatric treatment. The patient denies headaches, dizziness, chest pain, SOB, abdominal pain, nausea, vomiting, diarrhea, dysuria , or fever. PMD: [place], [place] PMH: Depression Allergies: NKDA Meds: Control (norgestimate - ethinyl estradiol) PSHx: cleft lip repair. Congenital kidney problem repair FamHx: HTN, DM father side. Depression; grandfather. Social history: Does not smoke cigarettes, drinks occasionally, smokes Marijuana ; 2-3 joints/day, living w/ sister and roommate Sexual hx: Sexually active, uses protection all the time, 1 partner in last 6 months ROS: 12 points assessed and negative unless otherwise reported in HPI Review of Systems - Review of Systems All systems: reviewed and no additional remarkable complaints except - Constitutional Constitutional: absent: Chills, Fever - EENT Eyes: absent: Change in Vision - Cardiovascular Cardiovascular: absent: Chest Pain, Edema, Leg Edema, Palpitations, Pedal Edema - Respiratory Respiratory: absent: Cough, Dyspnea - Gastrointestinal Gastrointestinal: absent: Abdominal Pain, Diarrhea, Hematochezia, Melena, Nausea , Vomiting - Genitourinary Genitourinary: absent: Dysuria - Reproductive: Female Reproductive:Female: Amenorrhea/ Control - Menstruation Menstruation: Amenorrhea/ Control - Integumentary Integumentary: absent: Rash - Neurological Neurological: absent: Dizziness, Headaches, Vertigo Past Patient History - Past Medical History & Family History Past Medical History?: Yes - Past Social History Smoking Status: Never Smoked - CARDIAC Hx Cardiac Disorders: No - PULMONARY Hx Respiratory Disorders: No - NEUROLOGICAL Hx Neurological Disorder: No - HEENT Hx HEENT Problems: Yes Other/Comment: cleft palate - RENAL Hx Chronic Kidney Disease: Yes - ENDOCRINE/METABOLIC Hx Endocrine Disorders: No - HEMATOLOGICAL/ONCOLOGICAL Hx Blood Disorders: No - INTEGUMENTARY Hx Dermatological Problems: No - MUSCULOSKELETAL/RHEUMATOLOGICAL Hx Musculoskeletal Disorders: No Hx Falls: No - GASTROINTESTINAL Hx Gastrointestinal Disorders: No - GENITOURINARY/GYNECOLOGICAL Hx Genitourinary Disorders: No - PSYCHIATRIC Hx Anxiety: Yes Hx Depression: Yes Hx Emotional Abuse: No Hx Physical Abuse: No Hx Sexual Abuse: No Hx Substance Use: Yes (pt smokes marijuana approx 3x week) - SURGICAL HISTORY Other/Comment: Cleft lip repair - ANESTHESIA Hx Anesthesia: Yes Hx Anesthesia Reactions: No Meds Allergies/Adverse Reactions: Allergies Allergy/AdvReac Type Severity Reaction Status Date / Time No Known Allergies Allergy Verified 05/12/17 12:17 - Medications Medications: Current Medications Acetaminophen (Tylenol 325mg Tab) 650 mg PO Q4 PRN PRN Reason: Pain, moderate (4-7) Al Hydrox/Mg Hydrox/Simethicone (Maalox Plus 30 Ml) 30 ml PO Q4 PRN PRN Reason: Dyspepsia Diphenhydramine HCl (Benadryl) 50 mg IM Q6 PRN PRN Reason: Extrapyramidal S/S Unable PO Diphenhydramine HCl (Benadryl) 50 mg PO Q6 PRN PRN Reason: Extrapyramidal Symptoms Escitalopram Oxalate (Lexapro) 5 mg PO DAILY CARTER Last Admin: 05/15/17 11:15 Dose: 5 mg Haloperidol (Haldol) 5 mg PO Q4 PRN PRN Reason: Agitation Haloperidol Lactate (Haldol) 5 mg IM Q4 PRN PRN Reason: Agitation, Unable to Take PO Lorazepam (Ativan) 2 mg IM Q4 PRN PRN Reason: Anxiety/Agitation,Unable PO Lorazepam (Ativan) 2 mg PO Q4 PRN PRN Reason: Anxiety/Agitation Magnesium Hydroxide (Milk Of Magnesia) 30 ml PO HS PRN PRN Reason: Constipation Physical Exam - Constitutional Appears: Non-toxic, No Acute Distress - Head Exam Head Exam: ATRAUMATIC, NORMAL INSPECTION, NORMOCEPHALIC - Eye Exam Eye Exam: Normal appearance - ENT Exam ENT Exam: Mucous Membranes Moist - Neck Exam Neck exam: Positive for: Full Rom. Negative for: Tenderness - Respiratory Exam Respiratory Exam: Clear to Auscultation Bilateral. absent: Decreased Breath Sounds, Rales, Rhonchi, Wheezes, Respiratory Distress - Cardiovascular Exam Cardiovascular Exam: REGULAR RHYTHM. absent: Tachycardia - GI/Abdominal Exam GI & Abdominal Exam: Normal Bowel Sounds, Soft. absent: Distended, Tenderness - Extremities Exam Extremities exam: Positive for: normal capillary refill, normal inspection. Negative for: calf tenderness, pedal edema, tenderness Additional comments: Left wrist and arm self inflicted superficial knife cuts noted, in varies stages of heeling No active bleeding or infected wound - Neurological Exam Neurological exam: Alert, CN II-XII Intact, Oriented x3 - Skin Skin Exam: Dry, Normal Color, Warm Results - Vital Signs Recent Vital Signs: Last Vital Signs Temp 97.5 F L 05/15/17 16:46 Pulse 56 L 05/15/17 16:46 Resp 19 05/15/17 16:46 BP 135/79 05/15/17 16:46 Pulse Ox - Labs Labs: Laboratory Results - last 24 hr 05/15/17 11:01 Triglycerides 67 Cholesterol 308 H LDL Cholesterol Direct 250 H HDL Cholesterol 45 Thyroxine (T4) 13.6 H TSH 3rd Generation 0.68 Assessment & Plan - Assessment and Plan (Free Text) Assessment: 21 y/o woman w/ pmh of depression admitted to psych for major depression w/ suicidal ideation Plan: Major depression - psych managing current major depression - started on escitalopram 5 mg PO daily Acetaminophen Overdose - Asymptomatic - Acetaminophen level <10.0 - CBC, CMP, Coag WNL - S/p N-Acetylcysteine IV protocol - f/u LFTs Prophylactic measures - DVT: low risk, ambulatory, OCPs held
[2017-05-16 08:19] LABS: ALB/GLOB RATIO 1.1 (1.0-2.1); ALBUMIN 4.1 g/dL (3.5-5.0); BILIRUBIN,DIRECT 0.3 mg/ml (0.0-0.4)
--- NOTE | 2017-05-16 10:31 | PCM.PYCHPN ---
Psychiatric Progress Note - Psychiatric Progress Note Patient seen today, length of contact: Patient evaluated, chart reviewed Patient Chief Complaint: "I am depressed." Problems Identified/Issues Discussed: Patient reports that she continues to feel depressed and anxious. No adverse effects to Lexapro. We discussed titrating the Lexapro to the normal starting dosage of 10 mg PO Daily. She denies acute AH/VH/SI/HI. He had thoughts of scratching her arms yesterday in response to feeling stressed and anxious, but did not perform any self harm. Coping strategies to deal with self injurious ideations discussed. Medication Change: No Medical Record Reviewed: Yes Consults ordered or reviewed: Medicine Mental Status Examination - Cognitive Function Orientation: Person, Place, Situation, Time Memory: Intact Attention: WNL Concentration: WNL Association: WNL Fund of Knowledge: WNL - Mood Mood: Depressed, Anxious - Affect Affect: Constricted, Depressed - Formal Thought Process Formal Thought Process: No Impairment Psychotic Thoughts and Behaviors: No AH/VH/paranoia/delusions - Suicidal Ideation Suicidal Ideation: No - Homicidal Ideation Homicidal Ideation: No Goal/Treatment Plan - Goal/Treatment Plan Need for Continued Stay: Remain at risks for inpatient hospitalization, Severe depression anxiety, Discharge may exacerbated symptoms Progress Toward Problem(s) and Goals/Treatment Plan: Major Depressive Disorder; r/o Borderline Personality Disorder -Medicine consult -Individual and group therapy -Psychoeducation -Lexapro 5 mg PO Daily, will titrate up to 10 mg PO Daily -Disposition planning Estimated Date of D/C: 05/20/17
[2017-05-16] MEDS: NORGESTIMATE ETHINYL ESTRADIOL PO SCH (17:32)
[2017-05-17] MEDS: NORGESTIMATE ETHINYL ESTRADIOL PO SCH (09:00)
--- NOTE | 2017-05-17 14:27 | CP.PCM.PN ---
Subjective - Date & Time of Evaluation Date of Evaluation: 05/17/17 Time of Evaluation: 09:30 - Subjective Subjective: Patient was seen and examined this morning. NAD, patient is smiling, no flate affect, Patient denies any abdominal pain, n/v/f/d, SOB, Objective - Vital Signs/Intake and Output Vital Signs (last 24 hours): Temp Pulse Resp BP Pulse Ox 97.9 F 60 18 124/69 05/17/17 09:00 05/17/17 09:00 05/17/17 09:00 05/17/17 09:00 - Medications Medications: Current Medications Acetaminophen (Tylenol 325mg Tab) 650 mg PO Q4 PRN PRN Reason: Pain, moderate (4-7) Al Hydrox/Mg Hydrox/Simethicone (Maalox Plus 30 Ml) 30 ml PO Q4 PRN PRN Reason: Dyspepsia Aripiprazole (Abilify) 2 mg PO DAILY COUNT INCLUDES THE [facility] Last Admin: 05/17/17 12:56 Dose: 2 mg Diphenhydramine HCl (Benadryl) 50 mg IM Q6 PRN PRN Reason: Extrapyramidal S/S Unable PO Diphenhydramine HCl (Benadryl) 50 mg PO Q6 PRN PRN Reason: Extrapyramidal Symptoms Diphenhydramine HCl (Benadryl) 50 mg PO HS PRN PRN Reason: Sleep Last Admin: 05/16/17 21:00 Dose: 50 mg Escitalopram Oxalate (Lexapro) 10 mg PO DAILY COUNT INCLUDES THE [facility] Last Admin: 05/17/17 08:59 Dose: 10 mg Haloperidol (Haldol) 5 mg PO Q4 PRN PRN Reason: Agitation Haloperidol Lactate (Haldol) 5 mg IM Q4 PRN PRN Reason: Agitation, Unable to Take PO Home Med (Norgestimate-Ethinyl Estradiol [Trinessa Tablet]) 1 each PO DAILY COUNT INCLUDES THE [facility] Last Admin: 05/17/17 09:00 Dose: 1 each Lorazepam (Ativan) 2 mg IM Q4 PRN PRN Reason: Anxiety/Agitation,Unable PO Lorazepam (Ativan) 2 mg PO Q4 PRN PRN Reason: Anxiety/Agitation Magnesium Hydroxide (Milk Of Magnesia) 30 ml PO HS PRN PRN Reason: Constipation - Constitutional Appears: No Acute Distress - Head Exam Head Exam: ATRAUMATIC - Eye Exam Eye Exam: Normal appearance Pupil Exam: NORMAL ACCOMODATION - ENT Exam ENT Exam: Mucous Membranes Moist - Neck Exam Neck Exam: Normal Inspection - Respiratory Exam Respiratory Exam: Clear to Ausculation Bilateral - Cardiovascular Exam Cardiovascular Exam: REGULAR RHYTHM - GI/Abdominal Exam GI & Abdominal Exam: Soft, Normal Bowel Sounds - Extremities Exam Extremities Exam: Full ROM Additional comments: cuts on left wrist and forearm - Neurological Exam Neurological Exam: Alert, Awake, Oriented x3 - Psychiatric Exam Psychiatric exam: Normal Affect - Skin Skin Exam: Dry, Intact, Normal Color Assessment and Plan - Assessment and Plan (Free Text) Assessment: 21 y/o woman w/ pmh of depression admitted to psych for major depression w/ suicidal ideation Plan: Major depression - psych managing current major depression - started on escitalopram 5 mg PO daily Acetaminophen Overdose - Asymptomatic - Acetaminophen level <10.0 - CBC, CMP, Coag WNL - S/p N-Acetylcysteine IV protocol - LFTs wnl Hypercholesterolemia - Dari 308, LDL 250 - Follow up with PMD - Lifestyle modification, diet control discussed with patient Elevated Thyroxine - T4 13.6 - TSH: 0.68 - Follow up with PMD in 4 to 6 weeks for further evaluation Prophylactic measures - DVT: low risk, ambulatory, OCPs held
--- NOTE | 2017-05-17 15:34 | PCM.PYCHPN ---
Psychiatric Progress Note - Psychiatric Progress Note Patient seen today, length of contact: Patient evaluated, chart reviewed Patient Chief Complaint: I am better and I have not had urges to hurt myself Problems Identified/Issues Discussed: pt on evaluation reported feeling less depressed , presenting with brighter affect, denied any current thoughts of self harm, pt agreed to join [facility] partial hospital program on discharge, discussed with pt starting abilify 2mg for impulsecontrol and depression pt denied any current suicidal or homicidal ideations, attending groups , compliant with medications DSM 5 Symptoms Update: 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 Medication Change: Yes (start abilify) Medical Record Reviewed: Yes Mental Status Examination - Cognitive Function Orientation: Person, Place, Situation, Time Memory: Intact Attention: WNL Concentration: WNL Association: WNL Fund of Knowledge: WNL - Mood Mood: Depressed, Anxious - Affect Affect: Constricted, Depressed - Speech Speech: Appropriate - Formal Thought Process Formal Thought Process: No Impairment Psychotic Thoughts and Behaviors: pt denied any current perceptual disturbances, non ellicited - Suicidal Ideation Suicidal Ideation: No - Homicidal Ideation Homicidal Ideation: No Goal/Treatment Plan - Goal/Treatment Plan Need for Continued Stay: Remain at risks for inpatient hospitalization, Severe depression anxiety, Discharge may exacerbated symptoms Progress Toward Problem(s) and Goals/Treatment Plan: continue with lexapro start abilify 2mg CBT group and supportive therapy social service to arrange for partial hospital program on discharge Estimated Date of D/C: 05/20/17
[2017-05-18] MEDS: NORGESTIMATE ETHINYL ESTRADIOL PO SCH (10:15)
--- NOTE | 2017-05-18 17:38 | PCM.PYCHPN ---
Psychiatric Progress Note - Psychiatric Progress Note Patient seen today, length of contact: Patient evaluated, chart reviewed Patient Chief Complaint: I am feeling alright , I will take a break from school Problems Identified/Issues Discussed: pt on evaluation reported feeling less depressed , presenting with brighter affect, denied any current thoughts of self harm,pt reported orthostatic hypotension pt medications will be given at night time , pt attending groups, showing good insight into illness and possible coping skills with stress pt denied any current suicidal or homicidal ideations, attending groups , compliant with medications DSM 5 Symptoms Update: major depression Medication Change: No Medical Record Reviewed: Yes Mental Status Examination - Cognitive Function Orientation: Person, Place, Situation, Time Memory: Intact Attention: WNL Concentration: WNL Association: WN Fund of Knowledge: WNL - Mood Mood: Anxious, Neutral - Affect Affect: Constricted - Speech Speech: Appropriate - Formal Thought Process Formal Thought Process: No Impairment Psychotic Thoughts and Behaviors: pt denied any current perceptual disturbances, non ellicited - Suicidal Ideation Suicidal Ideation: No - Homicidal Ideation Homicidal Ideation: No Goal/Treatment Plan - Goal/Treatment Plan Need for Continued Stay: Remain at risks for inpatient hospitalization, Severe depression anxiety, Discharge may exacerbated symptoms Progress Toward Problem(s) and Goals/Treatment Plan: continue with lexapro 10mg and abilify 2mg CBT group and supportive therapy social service to arrange for partial hospital program on discharge Estimated Date of D/C: 05/20/17
[2017-05-19] MEDS: NORGESTIMATE ETHINYL ESTRADIOL PO SCH (08:48)
[2017-05-19 09:05] VITALS: BP 136/82; PULSE 65; RESP 18; TEMP 97.9
--- NOTE | 2017-05-19 09:13 | CP.PCM.PN ---
Subjective - Date & Time of Evaluation Date of Evaluation: 05/19/17 Time of Evaluation: 07:50 - Subjective Subjective: Patient seen and examined this morning. Denies depressed mood, admits improvement, normal affect, ambulating, tolerating po diet, cooperative with inpatient therapy. Denies any abdominal pain, dizziness, SOB, chest pain, urinary symptoms. Objective - Vital Signs/Intake and Output Vital Signs (last 24 hours): Temp Pulse Resp BP Pulse Ox 97.9 F 65 18 136/82 05/19/17 09:00 05/19/17 09:00 05/19/17 09:00 05/19/17 09:00 - Medications Medications: Current Medications Acetaminophen (Tylenol 325mg Tab) 650 mg PO Q4 PRN PRN Reason: Pain, moderate (4-7) Al Hydrox/Mg Hydrox/Simethicone (Maalox Plus 30 Ml) 30 ml PO Q4 PRN PRN Reason: Dyspepsia Aripiprazole (Abilify) 2 mg PO HS [facility] Last Admin: 05/18/17 21:09 Dose: 2 mg Diphenhydramine HCl (Benadryl) 50 mg IM Q6 PRN PRN Reason: Extrapyramidal S/S Unable PO Diphenhydramine HCl (Benadryl) 50 mg PO Q6 PRN PRN Reason: Extrapyramidal Symptoms Last Admin: 05/19/17 03:47 Dose: 50 mg Diphenhydramine HCl (Benadryl) 50 mg PO HS PRN PRN Reason: Sleep Last Admin: 05/16/17 21:00 Dose: 50 mg Escitalopram Oxalate (Lexapro) 10 mg PO HS [facility] Last Admin: 05/18/17 21:09 Dose: 10 mg Haloperidol (Haldol) 5 mg PO Q4 PRN PRN Reason: Agitation Haloperidol Lactate (Haldol) 5 mg IM Q4 PRN PRN Reason: Agitation, Unable to Take PO Home Med (Norgestimate-Ethinyl Estradiol [Trinessa Tablet]) 1 each PO DAILY [facility] Last Admin: 05/19/17 08:48 Dose: 1 each Lorazepam (Ativan) 2 mg IM Q4 PRN PRN Reason: Anxiety/Agitation,Unable PO Lorazepam (Ativan) 2 mg PO Q4 PRN PRN Reason: Anxiety/Agitation Magnesium Hydroxide (Milk Of Magnesia) 30 ml PO HS PRN PRN Reason: Constipation - Constitutional Appears: No Acute Distress - Head Exam Head Exam: NORMAL INSPECTION - Eye Exam Eye Exam: Normal appearance - ENT Exam ENT Exam: Mucous Membranes Moist - Neck Exam Neck Exam: Normal Inspection - Respiratory Exam Respiratory Exam: Clear to Ausculation Bilateral - Cardiovascular Exam Cardiovascular Exam: REGULAR RHYTHM - GI/Abdominal Exam GI & Abdominal Exam: Soft, Normal Bowel Sounds - Extremities Exam Additional comments: Left wrist self inflected scars - Neurological Exam Neurological Exam: Alert, Awake, Oriented x3 - Psychiatric Exam Psychiatric exam: Normal Affect - Skin Skin Exam: Normal Color Assessment and Plan - Assessment and Plan (Free Text) Assessment: A/P 21 y/o woman w/ pmh of depression admitted to psych for major depression w/ suicidal ideation, s/p IV N-Acetylcysteine protocol for 4gm Tylenol overdose. Major depression - psych managing current major depression - continue with lexapro 10mg and abilify 2mg, CBT group and supportive therapy , partial hospital program on discharge - Management as per psych Acetaminophen Overdose - Asymptomatic - Acetaminophen level <10.0 - CBC, CMP, Coag WNL - S/p N-Acetylcysteine IV protocol - LFTs wnl Hypercholesterolemia - Dari 308, LDL 250 - Lifestyle modification, diet control discussed with patient - Possibility of familial hypercholesterolemia and Statin use discussed - Follow up with PMD Elevated Thyroxine - T4 13.6 - TSH: 0.68 - Follow up with PMD in 4 to 6 weeks for further evaluation Prophylactic measures - DVT: low risk, ambulatory, taking OCP
--- NOTE | 2017-05-19 13:35 | PCM.PYCHDC ---
Mental Status Examination - Mental Status Examination Orientation: Person, Place, Situation, Time Memory: Intact Mood: Neutral Affect: Broad Speech: Appropriate Attention: WNL Concentration: WNL Association: WNL Fund of Knowledge: WNL Formal Thought Process: No Impairment Description of patient's judgement and insight: fair insight and judgement Psychotic Thoughts and Behaviors: pt denied any current perceptual disturbances, non ellicited Suicidal Ideation: No Current Homicidal Ideation?: No Discharge Summary - Discharge Note Reason for Hospitalization: pt is a 21 y/o female with previous psychiatric history of of depression currently not on any medications but receiving counseling in school once weekly Pt presented to ED for after suicide attempt by Acetamenophen overdose. Patient reported feeling increasingly depressed for last few years which got severe/worse recently which prompted her to Overdose acetaminophen. She ingested 8 pills of acetaminophen 500mg (Total 8gm) after which she notified school counselor. Patient is a [employer] in college taking graduate classes; majoring in engineering, patient describes her school life vary stressful. she also feels uncertain about her future after graduation pt has been cutting herself superficially on the wrist and leg , she has had very low energy and unable to participate in swimming a s she used to reported feeling hopeless and helpless and continues to have suicidal ideatations denied manic or psychotic symptoms, reported using cannabis daily Consultations:: List each consultation separately and include: 1. Reason for request. 2. Findings. 3. Follow-up Summary of Hospital Course include:: 1. Description of specific treatment plan utilized for patients during their course of treatmen. 2. Summarize the time- course for resolution of acute symptoms and/or regressed behaviors. 3. Describe issues identified and worked on during hospitalization. 4. Describe medication utilized. 5. Describe medical problems identified and treated. 6. Reassessment of suicide risk Summary of Hospital Course: pt on admission was started on lexapro, uptitrated to 10mg, abilify 2mg group motivational and supportive therapy provided pt was compliant with treatment , no reported side effects of medications on discharge pt presented with brighter mood and affect, mental status was stable , pt denied any current suicidal or homicidal ideations, denied perceptual disturbances, no thoughts of self harm follow up arranged by manager social services at [place] - Diagnosis (1) Depression Current Visit: Yes Status: Acute - Final Diagnosis (DSM 5) Condition upon Discharge: GOOD DSM 5: major depression recurrent cannabis use disorder Disposition: HOME/ ROUTINE Prescriptions/Medication Reconciliation: ARIPiprazole [Abilify] 2 mg PO HS 30 Days #30 tab Escitalopram [Lexapro] 10 mg PO HS 30 Days #30 tab - Antipsychotic Medications Pt discharged on 2 or more routine antipsychotic medications: No
== END 2017-05-19 13:32 | disposition home or self-care (01) | DRG 885 ==
LOC: H.PSYCH 17:38
PROVIDERS: ADMIT Psychiatry & Neurology Psychiatry; ATTEND Psychiatry & Neurology Psychiatry
PROC: GZ51ZZZ Individual Psychotherapy, Behavioral (ICD-10-PCS; 2017-05-14)
PROC: GZHZZZZ Group Psychotherapy (ICD-10-PCS; principal; 2017-05-17)
DX: F33.2 Major depressive disorder, recurrent severe without psychotic features (principal); R45.851 Suicidal ideations; F41.9 Anxiety disorder, unspecified; I12.9 Hypertensive chronic kidney disease with stage 1 through stage 4 chronic kidney disease, or unspecified chronic kidney disease; N18.9 Chronic kidney disease, unspecified; T39.1X2D Poisoning by 4-Aminophenol derivatives, intentional self-harm, subsequent encounter; Z79.899 Other long term (current) drug therapy; Z87.730 Personal history of (corrected) cleft lip and palate; E78.00 Pure hypercholesterolemia, unspecified; F12.90 Cannabis use, unspecified, uncomplicated